=== PATIENT | male | born 1985 | race Caucasian/White ===

== ENCOUNTER 2017-10-26 10:59 | Emergency (ER) | payer BC ==
[2017-10-26] MEDS ORDERED: Aspirin 81 MG Tab.Chew PO ONE (11:28)
[2017-10-26] MEDS ORDERED: Sodium Chloride 0.9% 1,000 ML IV SCH (11:30)
--- NOTE | 2017-10-26 11:33 | EDM.PDOC ---
ED HPI GENERAL MEDICAL PROBLEM - General Chief Complaint: Chest Pain Stated Complaint: DIZZINESS/CHEST PAIN Time Seen by Provider: 10/26/17 11:17 Source of Information: Reports: Patient History Limitations: Reports: No Limitations - History of Present Illness INITIAL COMMENTS - FREE TEXT/NARRATIVE: Patient is a 32-year-old male with no significant history who presents to the ED complaining of midsternal chest pain with radiation to his right jaw and dizziness with exertion and relieved with rest. Patient states he was walking earlier today hunting deer for about an hour when this occurred. He had episode where he felt he was going to pass out. Currently has no complaints with drive into the ED. He is concerned this may related to his heart. Pain to his chest was described as a squeezing sensation. There was no shortness of breath no diaphoresis no cough no fever no [place] pain. Patient does note significant amount of acid reflux recently. He's also been recovering from some cold-like symptoms been going on for the past week. Patient does not smoke or use any recreational drugs. Alcohol use minimal. There is no family history of first degree relative with heart disease. He denies any hx of hypertension, hypercholesterol, or diabetes that may not be treated. 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 [No Known Home Meds] 03/06/15 [History] Past Medical History - Past Health History Medical/Surgical History: Denies Medical/Surgical History Social & Family History - Tobacco Use Smoking Status *Q: Never Smoker Second Hand Smoke Exposure: No - Caffeine Use Caffeine Use: Reports: Coffee - Recreational Drug Use Recreational Drug Use: No ED ROS GENERAL - Review of Systems Review Of Systems: See Below Constitutional: Reports: No Symptoms HEENT: Reports: No Symptoms Respiratory: Denies: Shortness of Breath, Cough, Sputum Cardiovascular: Reports: Chest Pain, Lightheadedness. Denies: Blood Pressure Problem, Dyspnea on Exertion, Palpitations, PND, Syncope GI/Abdominal: Reports: No Symptoms Musculoskeletal: Reports: No Symptoms Neurological: Reports: Dizziness. Denies: Headache, Numbness, Syncope, Tingling , Weakness ED EXAM, GENERAL - Physical Exam Exam: See Below Exam Limited By: No Limitations General Appearance: Alert, WD/WN, No Apparent Distress Ears: Hearing Grossly Normal Nose: Normal Inspection Throat/Mouth: Normal Voice, No Airway Compromise Neck: Normal Inspection, Supple Respiratory/Chest: No Respiratory Distress, Lungs Clear, Normal Breath Sounds, No Accessory Muscle Use, Chest Non-Tender Cardiovascular: Normal Peripheral Pulses, Regular Rate, Rhythm, No Murmur Peripheral Pulses: 2+: Posterior Tibial (L), Posterior Tibial (R), 3+: Radial (L ), Radial (R) GI/Abdominal: Normal Bowel Sounds, Soft, Non-Tender Back Exam: Normal Inspection Extremities: Normal Inspection, Non-Tender, No Pedal Edema, Normal Capillary Refill Neurological: Alert, Oriented, CN II-XII Intact, Normal Cognition, No Motor/ Sensory Deficits Psychiatric: Normal Affect, Normal Mood Skin Exam: Warm, Dry, Intact, Normal Color Course - Vital Signs Last Recorded V/S: Last Vital Signs Temp 97.7 F 10/26/17 11:14 Pulse 76 10/26/17 13:00 Resp 16 10/26/17 11:14 BP 110/75 10/26/17 12:46 Pulse Ox 95 10/26/17 13:00 - Orders/Labs/Meds Orders: Active Orders 24 hr Category Date Time Status Cardiac Monitoring [RC] . DIRECTED Care 10/26/17 11:26 Active EKG Documentation Completion [RC] STAT Care 10/26/17 11:27 Active Chest 1V Frontal [CR] Stat Exams 10/26/17 11:27 Taken LIPID PANEL [CHEM] Stat Lab 10/26/17 22:59 Ordered Labs: Laboratory Tests 10/26/17 10/26/17 10/26/17 Range/Units 11:35 11:35 11:35 WBC 6.54 (4.23-9.07) K/mm3 RBC 5.67 (4.63-6.08) M/mm3 Hgb 16.9 (13.7-17.5) gm/L Hct 49.0 (40.1-51.0) % MCV 86.4 (79.0-92.2) fl MCH 29.8 (25.7-32.2) pg MCHC 34.5 (32.2-35.5) g/dl RDW Std Deviation 40.2 (35.1-43.9) fL Plt Count 442 H (163-337) K/mm3 MPV 9.4 (9.4-12.3) fl Neut % (Auto) 55.7 (34.0-67.9) % Lymph % (Auto) 29.4 (21.8-53.1) % Mccreary % (Auto) 14.1 H (5.3-12.2) % Eos % (Auto) 0.5 L (0.8-7.0) Baso % (Auto) 0.3 (0.1-1.2) % Neut # (Auto) 3.65 (1.78-5.38) K/mm3 Lymph # (Auto) 1.92 (1.32-3.57) K/mm3 Mccreary # (Auto) 0.92 H (0.30-0.82) K/mm3 Eos # (Auto) 0.03 L (0.04-0.54) K/mm3 Baso # (Auto) 0.02 (0.01-0.08) K/mm3 PT 10.3 (8.0-13.0) SECONDS INR 0.95 APTT 29 (22-36) SECONDS Sodium 144 (136-145) mEq/L Potassium 4.3 (3.5-5.1) mEq/L Chloride 106 (98-107) mEq/L Carbon Dioxide 28 (21-32) mEq/L Anion Gap 14.3 (5-15) BUN 14 (7-18) mg/dL Creatinine 0.8 (0.7-1.3) mg/dL Est Cr Clr Drug Dosing 131.34 mL/min Estimated GFR (MDRD) > 60 (>60) mL/min BUN/Creatinine Ratio 17.5 (14-18) Glucose 94 (74-106) mg/dL Calcium 9.9 (8.5-10.1) mg/dL Total Bilirubin 0.2 (0.2-1.0) mg/dL AST 34 (15-37) U/L ALT 98 H (16-63) U/L Alkaline Phosphatase 95 (46-116) U/L Troponin I < 0.017 (0.00-0.056) ng/mL Total Protein 7.3 (6.4-8.2) g/dl Albumin 3.8 (3.4-5.0) g/dl Globulin 3.5 gm/dL Albumin/Globulin Ratio 1.1 (1-2) TSH 3rd Generation (0.358-3.74) uIU/mL 10/26/17 10/26/17 Range/Units 11:35 14:32 WBC (4.23-9.07) K/mm3 RBC (4.63-6.08) M/mm3 Hgb (13.7-17.5) gm/L Hct (40.1-51.0) % MCV (79.0-92.2) fl MCH (25.7-32.2) pg MCHC (32.2-35.5) g/dl RDW Std Deviation (35.1-43.9) fL Plt Count (163-337) K/mm3 MPV (9.4-12.3) fl Neut % (Auto) (34.0-67.9) % Lymph % (Auto) (21.8-53.1) % Mccreary % (Auto) (5.3-12.2) % Eos % (Auto) (0.8-7.0) Baso % (Auto) (0.1-1.2) % Neut # (Auto) (1.78-5.38) K/mm3 Lymph # (Auto) (1.32-3.57) K/mm3 Mccreary # (Auto) (0.30-0.82) K/mm3 Eos # (Auto) (0.04-0.54) K/mm3 Baso # (Auto) (0.01-0.08) K/mm3 PT (8.0-13.0) SECONDS INR APTT (22-36) SECONDS Sodium (136-145) mEq/L Potassium (3.5-5.1) mEq/L Chloride (98-107) mEq/L Carbon Dioxide (21-32) mEq/L Anion Gap (5-15) BUN (7-18) mg/dL Creatinine (0.7-1.3) mg/dL Est Cr Clr Drug Dosing mL/min Estimated GFR (MDRD) (>60) mL/min BUN/Creatinine Ratio (14-18) Glucose (74-106) mg/dL Calcium (8.5-10.1) mg/dL Total Bilirubin (0.2-1.0) mg/dL AST (15-37) U/L ALT (16-63) U/L Alkaline Phosphatase (46-116) U/L Troponin I < 0.017 (0.00-0.056) ng/mL Total Protein (6.4-8.2) g/dl Albumin (3.4-5.0) g/dl Globulin gm/dL Albumin/Globulin Ratio (1-2) TSH 3rd Generation 1.448 (0.358-3.74) uIU/mL Meds: Medications Discontinued Medications Generic Name Dose Route Start Last Admin Trade Name Kieran PRN Reason Stop Dose Admin Aspirin 162 mg 10/26/17 11:28 10/26/17 11:37 Aspirin PO 10/26/17 11:29 162 mg ONETIME ONE Administration Sodium Chloride 1,000 mls @ 125 mls/hr 10/26/17 11:30 10/26/17 11:37 Normal Saline IV 125 mls/hr ASDIRECTED [facility] Administration - Re-Assessments/Exams Free Text/Narrative Re-Assessment/Exam: IV established with normal saline 125 mL per hour, aspirin 162 mg by mouth. Patient's has already taken 160 mg prior to arrival. He has no nausea no pain with admission to the ED. GI cocktail has been ordered. Initial labs included CBC, chem 14, coag studies, troponin, chest x-ray, and EKG. Wells criteria low risk. Perc Rule Out. Chest x-ray revealed: Normal CXR. Reviewed with Dr. Sachin Hull. Final Interpretation is pending. EKG revealed: Normal sinus rhythm with no ST changes noted. Labs reveal: CBC and chem 14 were essentially normal. 10/26/17 12:26 Troponin <0.017. Remainder of Blood work is pending. Ordered for another troponin to be obtained in 3 hrs from previous blood draw. TSH is pending. TSH within normal limits. Heart Score: 0.9-1.7% risk of adverse cardiac event. In the HEART Score study, these patients were discharged (0.99% in the retrospective study, 1.7% in the prospective study) 10/26/17 15:29 Second troponin negative. Patient has no symptoms. Will discharge patient home with instructions as documented. Outpatient echocardiogram and stress test will be ordered. 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 Requests lipid panel. Departure - Departure Time of Disposition: 15:29 Disposition: Home, Self-Care 01 Condition: Good Clinical Impression: Stable angina Instructions: Nonspecific Chest Pain, [id number], Angina Pectoris, Easy-to- Read Referrals: Sandra Hernandez [Physician] - Forms: ED Department Discharge Additional Instructions: As discussed due to the onset of pain with dizziness and radiation of discomfort relieved with rest it is concerning this is related to your heart. All labs and studies here in the E.D. were essentially normal. Thus will have echocardiogram and stress test obtained on a outpatient basis. Take ASA 81 mg PO everyday and prilosec 20mg everyday 1/2 hr to breakfast as well. Refrain from any activities that cause worsening discomfort. If pain comes about not relieved with rest please call 911 to be evaluated, treated, and transported to the E.D. Return to the E.D. for any new or worsening symptoms. Please followup with Dr. Oleary PCP this coming week to establish care. - My Orders Last 24 Hours: My Active Orders 10/26/17 11:26 Cardiac Monitoring [RC] . DIRECTED 10/26/17 11:27 EKG Documentation Completion [RC] STAT Chest 1V Frontal [CR] Stat 10/26/17 22:59 LIPID PANEL [CHEM] Stat - Assessment/Plan Last 24 Hours: My Active Orders 10/26/17 11:26 Cardiac Monitoring [RC] . DIRECTED 10/26/17 11:27 EKG Documentation Completion [RC] STAT Chest 1V Frontal [CR] Stat 10/26/17 22:59 LIPID PANEL [CHEM] Stat
[2017-10-26 13:04] VITALS: BP 110/75
--- NOTE | 2017-10-28 07:59 | CR ---
Chest: Portable view of the chest was obtained. Comparison: Prior chest x-ray of 09/04/10. Heart size and mediastinum are normal. Lungs are clear. Bony structures are grossly intact. Impression: 1. Nothing acute is identified on portable chest x-ray. Diagnostic code #1
== END 2017-10-26 16:05 | disposition home or self-care (01) ==
LOC: JD.ED 10:59
DX: I20.8 Other forms of angina pectoris (principal)
CPT/HCPCS: 36415; 71010; 80053; 80061; 84443; 84484; 85025; 85610; 85730; 93005; 96360; 96361; 99285; A9270; J7040; 93010; 99284

== ENCOUNTER 2017-11-04 11:54 | Emergency (ER) | payer BC ==
[2017-11-04 12:10] VITALS: BP 143/84
[2017-11-04] MEDS ORDERED: Metoclopramide 10 MG/2 ML SDV IVPUSH ONE (12:13)
[2017-11-04] MEDS ORDERED: HYDROmorphone 1 MG/ML Syringe IVPUSH ONE (12:13)
[2017-11-04] MEDS ORDERED: Ketorolac 30 MG/ML SDV IVPUSH SCH (12:15)
[2017-11-04] MEDS ORDERED: Dextrose 5%-0.9% NaCl 1,000 ML IV SCH (12:15)
--- NOTE | 2017-11-04 12:18 | EDM.PDOC ---
ED HPI GENERAL MEDICAL PROBLEM - General Chief Complaint: Flank Pain Stated Complaint: KIDNEY PAIN Time Seen by Provider: 11/04/17 12:13 Source of Information: Reports: Patient History Limitations: Reports: No Limitations - History of Present Illness INITIAL COMMENTS - FREE TEXT/NARRATIVE: 32-year-old male presents the ED with acute onset of severe left flank pain radiating slightly into the left hemiabdomen superiorly. No radiation to the groin or testicles. Patient has had multiple renal colic bouts mostly on the right side. No past history of lithotripsy . He's managed to pass all stones. So she did nausea with no vomiting. Occasional feeling of need to void but unable to do so. No effect on the bowel thus far. Has not noticed any blood in his urine. He is home from work today as his and 2 of his children are sick with stomach flu he had this on the weekend as well with nausea vomiting and diarrhea. No previous abdominal surgery. 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 (see below) (None.) Left Flank Pain Score (Numeric/FACES): 8 - Related Data Allergies Allergy/AdvReac Type Severity Reaction Status Date / Time No Known Allergies Allergy Verified 11/04/17 12:10 Home Meds: Home Meds Ondansetron [Zofran ODT] 4 mg PO Q6H #5 tab.dis 11/04/17 [Rx] Tamsulosin [Flomax] 0.4 mg PO ONETIME #4 cap.er 11/04/17 [Rx] oxyCODONE HCl/Acetaminophen [Percocet 5-325 mg Tablet] 1 - 2 each PO Q4H PRN # 12 tablet 11/04/17 [Rx] Past Medical History - Past Health History Medical/Surgical History: Denies Medical/Surgical History Genitourinary History: Reports: Renal Calculus (Multiple bouts of renal colic primarily on the right side in the past. Is always passed the stones on his own. No renal surgery or lithotripsy.) Social & Family History - Tobacco Use Smoking Status *Q: Never Smoker Second Hand Smoke Exposure: No - Caffeine Use Caffeine Use: Reports: Coffee - Recreational Drug Use Recreational Drug Use: No - Living Situation & Occupation Living situation: Reports: Occupation: Employed ED ROS GENERAL - Review of Systems Review Of Systems: See Below Constitutional: Reports: Malaise, Weakness, Fatigue, Decreased Appetite. Denies : Fever, Chills HEENT: Reports: No Symptoms Respiratory: Reports: No Symptoms Cardiovascular: Reports: No Symptoms Endocrine: Reports: Fatigue GI/Abdominal: Reports: Abdominal Pain (Left hip upper abdominal discomfort radiating from the left flank.), Decreased Appetite, Nausea. Denies: Vomiting : Reports: Flank Pain (Left side), Other (Mild feeling of need to void but unable to pass any urine.) Musculoskeletal: Reports: Back Pain Skin: Reports: No Symptoms (Left flank) Neurological: Reports: No Symptoms Psychiatric: Reports: No Symptoms Hematologic/Lymphatic: Reports: No Symptoms Immunologic: Reports: No Symptoms ED EXAM, RENAL/ - Physical Exam Exam: See Below Exam Limited By: No Limitations General Appearance: Alert, WD/WN, Moderate Distress Throat/Mouth: Other Head: Atraumatic, Normocephalic (Mouth and throat appear mildly dry) Neck: Normal Inspection, Supple, Non-Tender, Full Range of Motion. No: Lymphadenopathy (L), Lymphadenopathy (R) Respiratory/Chest: No Respiratory Distress, Lungs Clear, Normal Breath Sounds Cardiovascular: Normal Peripheral Pulses, Regular Rate, Rhythm, No Edema, No Gallop, No Murmur GI/Abdominal: Normal Bowel Sounds, Soft, Non-Tender, No Organomegaly, No Abnormal Bruit, No Mass, Pelvis Stable Extremities: Normal Inspection, Normal Range of Motion, Non-Tender, No Pedal Edema Neurological: Alert, Oriented, CN II-XII Intact, Normal Cognition, Normal Gait Psychiatric: Normal Affect, Normal Mood Skin Exam: Warm, Intact, Normal Color, No Rash, Diaphoretic (Mild) Course - Vital Signs Last Recorded V/S: Last Vital Signs Temp 36.3 C 11/04/17 12:05 Pulse 78 11/04/17 12:05 Resp 18 11/04/17 12:05 BP 143/84 H 11/04/17 12:05 Pulse Ox 100 11/04/17 12:05 - Orders/Labs/Meds Meds: Medications Discontinued Medications Generic Name Dose Route Start Last Admin Trade Name Kieran PRN Reason Stop Dose Admin Hydromorphone HCl 1 mg 11/04/17 12:13 11/04/17 12:29 Dilaudid IVPUSH 11/04/17 12:14 1 mg ONETIME ONE Administration Dextrose/Sodium Chloride 1,000 mls @ 150 mls/hr 11/04/17 12:15 11/04/17 12:26 Dextrose 5%-Normal Saline IV 150 mls/hr ASDIRECTED JUSTINO Administration Ketorolac Tromethamine 30 mg 11/04/17 12:15 11/04/17 12:28 Toradol IVPUSH 30 mg ONETIME JUSTINO Administration Metoclopramide HCl 10 mg 11/04/17 12:13 11/04/17 12:25 Reglan IVPUSH 11/04/17 12:14 10 mg ONETIME ONE Administration - Radiology Interpretation Free Text/Narrative:: 32-year-old male presents to the ED with acute onset of left flank pain radiating into his left upper abdomen. History of renal colic primarily in the right side multiple times in the past. His past all stones in the past without need for urologic intervention. As far she knows he's been investigated for hyperparathyroidism in the past. Associated nausea today without vomiting. Mild feeling of need to void but unable to do so. Her pain is 8 out of 10. Plan IV normal saline at 250 mils per hour. Will give Dilaudid 1 mg IV with Reglan 10 mg IV and Toradol 30 mg IV for pain relief urinalysis when able. I will order CT of the abdomen and pelvis per renal protocol. - Re-Assessments/Exams Free Text/Narrative Re-Assessment/Exam: 11/04/17 12:59 CT reveals a 3 mm stone within the mid ureter on the left side. It is causing moderate degree of hydroureter superiorly and minimal hydronephrosis. No other pathology is identified within the right renal parenchyma. On the left there are 2 faint very small calcifications evident in the lower pole of the kidney. Gallbladder and liver pancreas and spleen appear to be normal. Adrenal glands are also normal. 11/04/17 13:06 patient is pain-free. He was advised the pain will come back as the stone travels further down the ureter towards his bladder likely today or tomorrow. He will be sent home with a urinary strainer. I will also place him on Percocet 5/3/25 milligram tablets one or 2 every 4-6 hours needed for pain relief 12 tablets Zofran 4 mg sublingually every 4-6 hours when necessary for nausea relief and tamsulosin 0.4 mg once daily for 4 days. Departure - Departure Time of Disposition: 13:07 Disposition: Home, Self-Care 01 Condition: Fair Clinical Impression: Kidney stone on left side - Discharge Information Prescriptions: Ondansetron [Zofran ODT] 4 mg PO Q6H #5 tab.dis oxyCODONE HCl/Acetaminophen [Percocet 5-325 mg Tablet] 1 - 2 each PO Q4H PRN # 12 tablet PRN Reason: pain relief. Tamsulosin [Flomax] 0.4 mg PO ONETIME #4 cap.er Instructions: Kidney Stones, [id number] Referrals: PCP,None [Ordering Only Provider] - Forms: ED Department Discharge Additional Instructions: Evaluation in the emergency room today in regards to acute onset of left flank and upper abdominal pain secondary to a 3 mm stone that is wedged in the mid ureter on the left side. This was identified on CT scan. This stone will therefore pass on its own likely today or tomorrow. Continue to drink plenty of fluids. Use Percocet 5/325 milligram tablets one or 2 every 4-6 hours as needed for pain relief. Zofran 4 mg may be used under the tongue every 4-6 hours no safe for nausea or vomiting relief. Use tamsulosin 0.4 mg tablet once daily for the next 4 days to help facilitate stone passage. Suggest any to strain her urine once the pain reaches the groin to identify that it has indeed passed. If it does so of course she can stop all medications. As discussed you should be on a no calcium added diet.
--- NOTE | 2017-11-04 13:47 | CT ---
CT abdomen and pelvis Technique: Multiple axial sections were obtained from above the dome of the diaphragm inferiorly through the pubic symphysis. Intravenous and oral contrast was not utilized. Study has been performed as a ureteral stone protocol. Findings: Left proximal ureter and left collecting system is mildly prominent. This is due to an obstructing mid left ureteral stone measuring about 3.1 mm. Small nonobstructing stone is noted within the lower left kidney as well as a second small nonobstructing stone located within the upper left kidney. No abnormal calcifications are seen within the right kidney. Visualized lung bases shows nothing acute. Liver shows no focal parenchymal abnormality. Gallbladder shows no calcified gallstones. Spleen appears within normal limits. Adrenal glands show no nodule. Pancreas is within normal limits. Aorta shows no aneurysmal dilatation. No retroperitoneal adenopathy or mesenteric abnormalities are seen. No pelvic mass or adenopathy is identified. Appendix is seen which appears normal. Bone window settings were reviewed which appears within normal limits for the patient's age. Impression: 1. Mild left-sided hydronephrosis caused by 3.1 mm obstructing stone within the mid left ureter. 2. 2 small nonobstructing calculi within the left kidney. 3. No additional abnormality is seen on noncontrast CT study of the abdomen and pelvis. Diagnostic code #3
== END 2017-11-04 13:32 | disposition home or self-care (01) ==
LOC: JD.ED 11:54
DX: N13.2 Hydronephrosis with renal and ureteral calculous obstruction (principal)
CPT/HCPCS: 74176; 96361; 96374; 96375; 99284; J1170; J1885; J2765; J7042

== ENCOUNTER 2021-07-29 19:37 | Emergency (ER) | payer BC ==
[2021-07-29] MEDS ORDERED: Ondansetron 4 MG/2 ML SDV IVPUSH ONE (20:50)
[2021-07-29] MEDS ORDERED: Sodium Chloride 0.9% 1,000 ML IV ONE ×2 (20:50→23:38)
--- NOTE | 2021-07-29 20:57 | EDM.PDOC ---
ED HPI GENERAL MEDICAL PROBLEM - General Chief Complaint: General Stated Complaint: CONFUSED/FEVER/HEADACHE/ Time Seen by Provider: 07/29/21 20:22 Source of Information: Reports: Patient, Family () History Limitations: Reports: No Limitations - History of Present Illness INITIAL COMMENTS - FREE TEXT/NARRATIVE: Mr. Coyle is a very pleasant 35-year-old gentleman who now presents the ED stating that he developed a headache, felt as a pressure sensation across his entire head, along with photophobia, phonophobia, nausea, and tingling of his fingers, this past 07/25/2021. He states that the headache is typical of his "migraines", although he has not been formally diagnosed with migraines. He states that he felt hot, but had no fever. And had insomnia. Took Saturday off of work. He states that he felt completely back to normal on morning, and was able to return to work, however, the headache returned afternoon, after he sneezed hard. Again he felt hot, but had no fever. The patient states that he has had nausea without emesis for the past 3 days. He felt lightheaded today. He has felt tachypneic. His appetite has been poor. He had a fever of 103.6 degrees at home this evening. He took a cool bath, but no analgesics before coming to the ED. He has felt generally weak, and was noted to be unsteady when he arrived to the ED. Here in the ED, the patient was initially found to be hemodynamically stable, afebrile, saturating 95% on room air. He appears to be mildly uncomfortable, but in no acute distress. Prior to Saturday, the patient denies having a recent fever, chills, sore throat, ear pain, nasal or sinus congestion, cough, dyspnea, chest pain, palpitations, nausea, vomiting, constipation, diarrhea, abdominal pain, urinary symptoms, recent weight gain or weight loss, recent bloody bowel movements or black bowel movements, recent joint aches, headaches, or rashes. The patient does not have a PCP. He has not received a COVID vaccination. Right Shoulder Pain Score (Numeric/FACES): 10 Headache Pain Score (Numeric/FACES): 9 - Related Data Allergies Allergy/AdvReac Type Severity Reaction Status Date / Time No Known Allergies Allergy Verified 11/05/18 04:55 Home Meds: Home Meds . [No Known Home Meds] 07/29/21 [History] Past Medical History Genitourinary History: Reports: Renal Calculus Neurological History: Reports: Migraines (suspected, not diagnosed) - Infectious Disease History Infectious Disease History: Reports: Novel Coronavirus (dx'd 07/29/2021) - Past Surgical History HEENT Surgical History: Reports: Adenoidectomy, Oral Surgery (dental extractions), Tonsillectomy GI Surgical History: Reports: Cholecystectomy (2019) Social & Family History - Tobacco Use Tobacco Use Status *Q: Never Tobacco User - Caffeine Use Caffeine Use: Reports: Coffee - Alcohol Use Alcohol Use History: Yes Alcohol Use Frequency: Socially - Recreational Drug Use Recreational Drug Use: No - Living Situation & Occupation Living situation: Reports: , with Spouse, with Family (5 daughters) 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 ED EXAM, GENERAL - Physical Exam Exam: See Below Exam Limited By: No Limitations General Appearance: Alert, WD/WN, No Apparent Distress Eye Exam: Bilateral Eye: EOMI, Normal Inspection, PERRL Ears: Normal External Exam, Normal Canal, Hearing Grossly Normal, Normal TMs Nose: Normal Inspection, Normal Mucosa, No Blood Throat/Mouth: Normal Inspection, Normal Lips, Normal Teeth, Normal Gums, Normal Oropharynx, Normal Voice, No Airway Compromise Head: Atraumatic, Normocephalic Neck: Normal Inspection, Supple, Non-Tender, Full Range of Motion, Other (Kerning sign absent) Respiratory/Chest: No Respiratory Distress, Lungs Clear, Normal Breath Sounds, No Accessory Muscle Use. No: Decreased Breath Sounds, Crackles, Rhonchi, Wheezing, Stridor, Prolonged Expiration Cardiovascular: Normal Peripheral Pulses, Regular Rate, Rhythm, No Gallop, No JVD, No Murmur, No Rub Peripheral Pulses: 3+: Radial (L), Radial (R) GI/Abdominal: Normal Bowel Sounds, Soft, Non-Tender, No Organomegaly, No Distention, No Abnormal Bruit, No Mass Back Exam: Normal Inspection, Full Range of Motion, NT Extremities: Normal Inspection, Normal Range of Motion, Normal Capillary Refill Neurological: Alert, Oriented, CN II-XII Intact, Normal Cognition, Normal Gait, Normal Reflexes, No Motor/Sensory Deficits, Other (Brudzinski sign absent) Psychiatric: Normal Affect Skin Exam: Warm, Dry, Intact, Normal Color, No Rash #1 Interpretation EKG Date: 07/29/21 Time: 21:06 Rhythm: NSR Rate (Beats/Min): 80 [place]: Normal P-Wave: Present QRS: Normal ST-T: Normal QT: Normal Comparison: No Change (10/26/2017) Course - Vital Signs Last Recorded V/S: Last Vital Signs Temp 36.9 C 07/30/21 00:30 Pulse 77 07/30/21 00:30 Resp 24 H 07/30/21 00:30 BP 108/64 07/30/21 00:30 Pulse Ox 88 L 07/30/21 00:30 Orthostatic Blood Pressure [ 111/71 Standing] Orthostatic Blood Pressure [ 104/80 Sitting] Orthostatic Blood Pressure [ 108/64 Supine] - Orders/Labs/Meds Orders: Active Orders 24 hr Category Date Time Status Orthostatic Vital Signs [RC] STAT Care 07/29/21 20:48 Active Orthostatic Vital Signs [RC] STAT Care 07/29/21 21:41 Active Orthostatic Vital Signs [RC] STAT Care 07/29/21 23:38 Active Vital Signs [RC] Q15M Care 07/29/21 22:42 Active Chest 1V Frontal [CR] Stat Exams 07/29/21 20:47 Taken BLOOD CULTURE [MREF] Stat Lab 07/29/21 21:15 Received BLOOD CULTURE [MREF] Stat Lab 07/29/21 21:25 Received EPINEPHrine [Adrenalin] Med 07/29/21 22:42 Active 0.3 mg IM ONETIME PRN Famotidine [Pepcid] Med 07/29/21 22:42 Active 20 mg IVPUSH ONETIME PRN Sodium Chloride 0.9% [Saline Flush] Med 07/29/21 22:45 Active 30 ml FLUSH ASDIRECTED diphenhydrAMINE [Benadryl] Med 07/29/21 22:42 Active 50 mg IVPUSH ONETIME PRN methylPREDNISolone Sod Succ [Solu-MEDROL] Med 07/29/21 22:42 Active 125 mg IVPUSH ONETIME PRN Blood Culture x2 Reflex Set [OM.PC] Stat Oth 07/29/21 20:50 Ordered Medication Orders Diphenhydramine HCl (Diphenhydramine 50 Mg/Ml Sdv) 50 mg IVPUSH ONETIME PRN PRN Reason: hypersensitivity reaction Epinephrine HCl (Epinephrine 1 Mg/Ml Sdv) 0.3 mg IM ONETIME PRN PRN Reason: hypersensitivity reaction Famotidine (Famotidine 20 Mg/2 Ml Sdv) 20 mg IVPUSH ONETIME PRN PRN Reason: hypersensitivity reaction Methylprednisolone Sodium Succinate (Methylprednisolone Sodium Succinate 125 Mg/2 Ml Sdv) 125 mg IVPUSH ONETIME PRN PRN Reason: hypersensitivity reaction Sodium Chloride (Sodium Chloride 0.9% 10 Ml Syringe) 30 ml FLUSH ASDIRECTED JUSTINO Last Admin: 07/30/21 00:06 Dose: 30 ml Documented by: MARIUSZ Labs: Laboratory Tests 07/29/21 07/29/21 07/29/21 Range/Units 21:05 21:15 21:15 WBC 6.34 (4.23-9.07) K/mm3 RBC 5.46 (4.63-6.08) M/mm3 Hgb 16.3 (13.7-17.5) gm/dl Hct 49.1 (40.1-51.0) % MCV 89.9 (79.0-92.2) fl MCH 29.9 (25.7-32.2) pg MCHC 33.2 (32.2-35.5) g/dl RDW Std Deviation 44.0 H (35.1-43.9) fL Plt Count 269 D (163-337) K/mm3 MPV 9.5 (9.4-12.3) fl Neutrophils % (Manual) 81 H (40-60) % Band Neutrophils % 0 (0-10) % Lymphocytes % (Manual) 15 L (20-40) % Atypical Lymphs % 0 % Monocytes % (Manual) 4 (2-10) % Eosinophils % (Manual) 0 L (0.8-7.0) % Basophils % (Manual) 0 L (0.2-1.2) Platelet Estimate Adequate RBC Morph Comment Normal D-Dimer, Quantitative 0.30 (0.19-0.50) mg/L Sodium (136-145) mEq/L Potassium (3.5-5.1) mEq/L Chloride (98-107) mEq/L Carbon Dioxide (21-32) mEq/L Anion Gap (5-15) BUN (7-18) mg/dL Creatinine (0.7-1.3) mg/dL Est Cr Clr Drug Dosing mL/min Estimated GFR (MDRD) (>60) mL/min BUN/Creatinine Ratio (14-18) Glucose (70-99) mg/dL Lactic Acid (0.4-2.0) mmol/L Calcium (8.5-10.1) mg/dL Magnesium (1.8-2.4) mg/dL Total Bilirubin (0.2-1.0) mg/dL AST (15-37) U/L ALT (16-63) U/L Alkaline Phosphatase (46-116) U/L C-Reactive Protein (<1.0) mg/dL Total Protein (6.4-8.2) g/dl Albumin (3.4-5.0) g/dl Globulin gm/dL Albumin/Globulin Ratio (1-2) SARS-CoV-2 RNA ([facility]) Positive H (NEGATIVE) 07/29/21 07/29/21 Range/Units 21:15 21:15 WBC (4.23-9.07) K/mm3 RBC (4.63-6.08) M/mm3 Hgb (13.7-17.5) gm/dl Hct (40.1-51.0) % MCV (79.0-92.2) fl MCH (25.7-32.2) pg MCHC (32.2-35.5) g/dl RDW Std Deviation (35.1-43.9) fL Plt Count (163-337) K/mm3 MPV (9.4-12.3) fl Neutrophils % (Manual) (40-60) % Band Neutrophils % (0-10) % Lymphocytes % (Manual) (20-40) % Atypical Lymphs % % Monocytes % (Manual) (2-10) % Eosinophils % (Manual) (0.8-7.0) % Basophils % (Manual) (0.2-1.2) Platelet Estimate RBC Morph Comment D-Dimer, Quantitative (0.19-0.50) mg/L Sodium 138 (136-145) mEq/L Potassium 4.6 (3.5-5.1) mEq/L Chloride 101 (98-107) mEq/L Carbon Dioxide 28 (21-32) mEq/L Anion Gap 13.6 (5-15) BUN 13 (7-18) mg/dL Creatinine 1.2 (0.7-1.3) mg/dL Est Cr Clr Drug Dosing 87.87 mL/min Estimated GFR (MDRD) > 60 (>60) mL/min BUN/Creatinine Ratio 10.8 L (14-18) Glucose 91 (70-99) mg/dL Lactic Acid 1.0 (0.4-2.0) mmol/L Calcium 8.2 L (8.5-10.1) mg/dL Magnesium 2.1 (1.8-2.4) mg/dL Total Bilirubin 0.2 (0.2-1.0) mg/dL AST 24 (15-37) U/L ALT 43 (16-63) U/L Alkaline Phosphatase 70 (46-116) U/L C-Reactive Protein 2.9 H* (<1.0) mg/dL Total Protein 7.4 (6.4-8.2) g/dl Albumin 3.5 (3.4-5.0) g/dl Globulin 3.9 gm/dL Albumin/Globulin Ratio 0.9 L (1-2) SARS-CoV-2 RNA ([facility]VNG) (NEGATIVE) Meds: Medications Generic Name Dose Route Start Last Admin Trade Name Freq PRN Reason Stop Dose Admin Diphenhydramine HCl 50 mg 07/29/21 22:42 Diphenhydramine 50 Mg/Ml Sdv IVPUSH ONETIME PRN hypersensitivity reaction Epinephrine HCl 0.3 mg 07/29/21 22:42 Epinephrine 1 Mg/Ml Sdv IM ONETIME PRN hypersensitivity reaction Famotidine 20 mg 07/29/21 22:42 Famotidine 20 Mg/2 Ml Sdv IVPUSH ONETIME PRN hypersensitivity reaction Methylprednisolone Sodium Succinate 125 mg 07/29/21 22:42 Methylprednisolone Sodium Succinate 125 Mg/2 Ml Sdv IVPUSH ONETIME PRN hypersensitivity reaction Sodium Chloride 30 ml 07/29/21 22:45 07/30/21 00:06 Sodium Chloride 0.9% 10 Ml Syringe FLUSH 30 ml ASDIRECTED JUSTINO Administration Discontinued Medications Generic Name Dose Route Start Last Admin Trade Name Freq PRN Reason Stop Dose Admin Sodium Chloride 1,000 mls @ 999 mls/hr 08/28/21 20:50 07/29/21 21:40 Normal Saline IV 07/29/21 21:50 999 mls/hr ONETIME ONE Administration CASIRIVIMAB/IMDEVIMAB 10 ml/ 110 mls @ 220 mls/hr 07/29/21 22:42 07/30/21 00:08 Sodium Chloride IV 07/29/21 23:11 220 mls/hr ONETIME ONE Administration Sodium Chloride 1,000 mls @ 999 mls/hr 07/29/21 23:38 07/30/21 00:00 Normal Saline IV 07/30/21 00:38 999 mls/hr ONETIME ONE Administration Ondansetron HCl 4 mg 07/29/21 20:50 07/29/21 21:39 Ondansetron 4 Mg/2 Ml Sdv IVPUSH 07/29/21 20:51 4 mg ONETIME ONE Administration - Re-Assessments/Exams Free Text/Narrative Re-Assessment/Exam: 07/29/21 20:51 As above, the patient developed a headache, felt as a pressure sensation across his entire head, with associated photophobia, phonophobia, nausea, and tingling of his fingers. He felt hot, but did not have a fever. He took Saturday off. He had insomnia. morning he felt all better, and was able to return to work, but his headache returned to evening. Again, he felt hot, but did not have a fever. He eventually did develop a fever last night, Saturday. He reports 3 days of nausea. He had a fever of 103.6 degrees tonight, which re solved after taking a cool bath. No antipyretics. He feels generally weak, and was noted to have an unsteady gait walking into the ED. He feels tachypneic and lightheaded, although his vitals are within normal limits. His physical exam is grossly unremarkable. I have ordered a work-up that includes orthostatics, numerous blood tests, 2 sets of blood cultures, a swab for the SARS-CoV-2 virus, a chest x-ray, and an ECG. In the meantime, the patient will be given some IV fluid and IV Zofran. A physician friend of the family had suggested that the patient may have meningitis. Both nida and Randall signs are absent, and a thorough neurologic examination is normal. The patient reports that the headache that he has been experiencing since Saturday is his usual headache. My suspicion for onesimo terial meningitis is low, however, I did offer to perform (or have the SMOKEHOUSE WORKER perform) a lumbar puncture, however, the patient declined at this time. 07/29/21 21:41 Notified by Cindy LOVELL that the patient is significantly orthostatic. His BP dropped from 102/67 supine to 47/34 standing. The patient nearly passed out. He will be given a 1 L bolus of IV fluid, followed by repeat orthostatics. 07/29/21 22:12 Portable chest radiograph reviewed. The cardiac silhouette is within normal limits. No pulmonary vascular congestion. No pleural effusions seen on this AP view. Mild bilateral hazy infiltrates, consistent with COVID-19 pneumonia. No pneumothorax. Formal read per the Radiologist pending. The patient's CBC is unremarkable. His CMP is unremarkable. His magnesium level is within normal limits at 2.1. His lactic acid level is within normal limits at 1.0. His CRP is elevated at 2.9. His D-dimer is within normal limits at 0.30. The patient swab for the SARS-CoV-2 virus is positive. 07/29/21 22:42 Test results discussed with the patient (his is not currently present). As above, the patient has COVID-19. Based on his BMI, he is a candidate for treatment with the monoclonal antibody Regen-Cov. We discussed at length that it is an emergency use authorization medication, intended to decrease the likelihood of patients diagnosed with COVID-19 developing severe symptoms or , and that it does not treat his current symptoms. His mildly elevated CRP would indicate that he is not at high risk for the development of serious complications or , and therefore he would not likely derive much benefit from Regen-Cov. I explained that Regen-Cov is still under investigation, that it is not fully FDA approved, and that the potential benefits and risks of the medication are not fully known. We discussed that if he receives Regen-Cov, it may decrease his immune response to a COVID vaccination, should he decide to get it after he recovers from his current illness. The patient stated, however, that he has no intention of receiving a COVID vaccination. I explained that there is a possibility that he could have an allergic reaction either during or after the infusion, as well as brief pain, bleeding, bruising of the skin, soreness, swelling, and possible infection at the infusion site. Other side effects could occur. I discussed that there are other potential treatment options that are currently not FDA approved to treat COVID-19. The patient was notified that the infusion takes about 1 hour, after which he would be expected to remain in the ED for another hour to observe for possible side effects. He was offered the "Patient and caregiver MARIO Regen-Cov fact sheet" to read and review. All questions were answered. The patient expressed understanding, and would like to proceed with the infusion. 07/29/21 23:39 Following 1 L of IV fluid, the patient is still orthostatic, although nowhere near as bad as before. He will be given a second liter of IV fluid, followed by repeat orthostatics. 07/30/21 01:38 Following a second liter of IV fluid, the patient is no longer orthostatic. 07/30/21 01:56 The patient states that he feels somewhat better than he did before, but he still has a headache and feels dizzy. He states that he feels well enough to go home. He declined an offer for prescription for Zofran. I reminded him that he will need to strictly isolate for 10 days, and not return to work until he tests negative. Departure - Departure Time of Disposition: 01:57 Disposition: Home, Self-Care 01 Condition: Good Clinical Impression: COVID-19, Orthostatic hypotension - Discharge Information *PRESCRIPTION DRUG MONITORING PROGRAM REVIEWED*: Not Applicable *COPY OF PRESCRIPTION DRUG MONITORING REPORT IN PATIENT NICK: Not Applicable Forms: ED Department Discharge Additional Instructions: You were seen in the emergency room after developing a headache on Saturday, followed by a fever, lightheadedness, nausea, generalized weakness, and unsteadiness on your feet. Work-up in the ER included positional blood pressure checks, numerous blood tests, 2 sets of blood cultures, a swab for the SARS-CoV-2 virus, a chest x-ray, and an ECG. Your blood pressure dropped excessively between lying and standing, indicating intravascular depletion. Your blood pressures normalized after you were given 2 L of IV fluid in the ER. Your swab for the SARS-CoV-2 virus returned positive. This means that you have COVID-19. You were treated with an infusion of monoclonal antibodies called Regen-Cov. As discussed, Regen-Cov DOES NOT reduce your current symptoms, but does decrease the likelihood that you will develop serious complications from COVID-19 requiring hospitalization or . Going forward, we recommend that you stay adequately hydrated and eat a bland diet, as tolerated, such as rice or oatmeal. Chicken noodle soup with saltine crackers is an excellent choice. You may take Tylenol or ibuprofen as needed for discomfort, however, bear in mind that fever is an important part of your immune systems attempt to fight the virus, therefore we recommend that you try to avoid taking Tylenol or ibuprofen, if possible. As discussed, it is imperative that you remain strictly isolated for 10 days. Do not return to work and less you tested negative at that time. You declined an offer for a prescription for anti-nausea medicine and a note for work. If any other problems, including worsening shortness of breath or other concerning symptoms, please do not hesitate to return to the ER. Sepsis Event Note (ED) - Focused Exam Vital Signs: Vital Signs Temp Pulse Pulse Resp BP Pulse Ox 07/30/21 00:30 36.9 C 77 24 H 108/64 88 L 07/30/21 00:00 37.0 C 74 18 106/68 90 L 07/29/21 23:30 37.0 C 86 18 106/58 L 94 L 07/29/21 23:00 37.1 C 88 18 106/54 L 92 L 07/29/21 22:30 36.8 C 88 18 110/74 94 L 07/29/21 20:22 37.4 C 86 14 105/69 95 - My Orders Last 24 Hours: My Active Orders 07/29/21 20:47 Chest 1V Frontal [CR] Stat 07/29/21 20:48 Orthostatic Vital Signs [RC] STAT 07/29/21 20:50 Blood Culture x2 Reflex Set [OM.PC] Stat 07/29/21 21:15 BLOOD CULTURE [MREF] Stat 07/29/21 21:25 BLOOD CULTURE [MREF] Stat 07/29/21 21:41 Orthostatic Vital Signs [RC] STAT 07/29/21 22:42 Vital Signs [RC] Q15M EPINEPHrine [Adrenalin] 0.3 mg IM ONETIME PRN Famotidine [Pepcid] 20 mg IVPUSH ONETIME PRN diphenhydrAMINE [Benadryl] 50 mg IVPUSH ONETIME PRN methylPREDNISolone Sod Succ [Solu-MEDROL] 125 mg IVPUSH ONETIME PRN 07/29/21 22:45 Sodium Chloride 0.9% [Saline Flush] 30 ml FLUSH ASDIRECTED 07/29/21 23:38 Orthostatic Vital Signs [RC] STAT - Assessment/Plan Last 24 Hours: My Active Orders 07/29/21 20:47 Chest 1V Frontal [CR] Stat 07/29/21 20:48 Orthostatic Vital Signs [RC] STAT 07/29/21 20:50 Blood Culture x2 Reflex Set [OM.PC] Stat 07/29/21 21:15 BLOOD CULTURE [MREF] Stat 07/29/21 21:25 BLOOD CULTURE [MREF] Stat 07/29/21 21:41 Orthostatic Vital Signs [RC] STAT 07/29/21 22:42 Vital Signs [RC] Q15M EPINEPHrine [Adrenalin] 0.3 mg IM ONETIME PRN Famotidine [Pepcid] 20 mg IVPUSH ONETIME PRN diphenhydrAMINE [Benadryl] 50 mg IVPUSH ONETIME PRN methylPREDNISolone Sod Succ [Solu-MEDROL] 125 mg IVPUSH ONETIME PRN 07/29/21 22:45 Sodium Chloride 0.9% [Saline Flush] 30 ml FLUSH ASDIRECTED 07/29/21 23:38 Orthostatic Vital Signs [RC] STAT
[2021-07-29] MEDS ORDERED: Famotidine 20 MG/2 ML SDV IVPUSH PRN (22:42)
[2021-07-29] MEDS ORDERED: EPINEPHrine 1 MG/ML SDV IM PRN (22:42)
[2021-07-29] MEDS ORDERED: methylPREDNISolone Sodium Succinate 125 MG/2 ML SDV IVPUSH PRN (22:42)
[2021-07-29] MEDS ORDERED: diphenhydrAMINE 50 MG/ML SDV IVPUSH PRN (22:42)
[2021-07-29] MEDS ORDERED: Sodium Chloride 0.9% 10 ML Syringe FLUSH SCH (22:45)
[2021-07-30 01:05] VITALS: BP 108/64
[2021-07-30 02:22] VITALS: PULSE 107
--- NOTE | 2021-07-30 09:16 | CR ---
Chest: Portable view of the chest was obtained. Comparison: Prior chest x-ray of 10/26/17. Heart size and mediastinum are normal. Lungs are clear with no acute parenchymal change. Bony structures are grossly intact. Impression: 1. Nothing acute is seen on portable chest x-ray. Diagnostic code #1
== END 2021-07-30 02:22 | disposition home or self-care (01) ==
LOC: JD.ED 19:37
DX: U07.1 COVID-19 (principal); I95.1 Orthostatic hypotension; R79.82 Elevated C-reactive protein (CRP)
CPT/HCPCS: 36415; 71045; 80053; 83605; 83735; 85007; 85027; 85379; 86140; 87040; 87635; 93005; 96374; 99284; J2405; J7030; M0243; Q0243; 93010; U0002